=== PATIENT | male | born 1970 | race Caucasian/White ===

== ENCOUNTER → 2017-10-09 | Outpatient (CLI) | payer BC ==
[~2017-10-09] MED LIST: ANTIVERT 25MG25 MG PO; IBUPROFEN800 MG PO; NO HOME MEDICATIONS; ROBITUSSIN DM120 ML PO; ZITHROMAX TRI-500 MG PO
== END ==
LOC: COL.RAD 16:42
DX: R51 Headache (principal); M54.41 Lumbago with sciatica, right side; R05 Cough

== ENCOUNTER 2021-09-06 09:45 | Outpatient (CLI) | payer OTHER ==
[2021-09-06] VITALS (8 sets, daily range): BP systolic 130–153; BP diastolic 80–91; PULSE 66–81; TEMP 97.7
[2021-09-06] MEDS ORDERED: ALLEGRA 180MG180 MG PO (11:02)
[2021-09-06] MEDS ORDERED: PRENATAL PO (11:03)
[2021-09-06] MEDS ORDERED: CLARITIN 1010 MG/TAB PO (11:03)
[2021-09-06] MEDS ORDERED: OMEGA-3 1000 MG1 CAP PO (11:03)
== END 2021-09-06 12:30 | disposition home or self-care (01) ==
LOC: EUO 09:45
DX: U07.1 COVID-19 (principal)
CPT/HCPCS: M0245